=== PATIENT | female | born 1985 | race Caucasian/White ===

== ENCOUNTER 2023-09-10 09:53 | Inpatient (IN) | payer BC ==
[2023-09-10 11:20] VITALS: BMI 33.3
[2023-09-10] MEDS ORDERED: IBUPROFEN 400 MG TABLET (FP) PO PRN (12:10)
[2023-09-10] MEDS ORDERED: POLYETHYLENE GLYCOL (HEALTHYLAX) 3350 17 GM PACKET PO PRN (12:10)
[2023-09-10] MEDS ORDERED: guaiFENesin 600 MG TABLET.ER (FP) PO PRN (12:10)
[2023-09-10] MEDS ORDERED: NALOXONE HCL 0.4 MG/ML VIAL IM PRN (12:10)
[2023-09-10] MEDS ORDERED: IBUPROFEN 600 MG TABLET (FP) PO PRN (12:10)
[2023-09-10] MEDS ORDERED: BISMUTH SUBSALICYLATE 262 MG/15 ML BTL PO PRN (12:10)
[2023-09-10] MEDS ORDERED: hydrOXYzine PAMOATE 25 MG CAPSULE (FP) PO PRN (12:10)
[2023-09-10] MEDS ORDERED: BENZOCAINE/MENTHOL (CHLORASEPTIC ) LOZENGE MM PRN (12:10)
[2023-09-10] MEDS ORDERED: NALOXONE (NARCAN) HCL 4 MG/0.1 ML SPRAY NS PRN (12:10)
[2023-09-10] MEDS ORDERED: BENZONATATE 200 MG CAPSULE PO PRN (12:10)
[2023-09-10] MEDS ORDERED: ONDANSETRON *ODT* 4 MG TABLET SL PRN (12:10)
[2023-09-10] MEDS ORDERED: MAG HYDROX/AL HYDROX/SIMETH 30 ML UNIT-DOSE CUP PO PRN (12:10)
[2023-09-10] MEDS ORDERED: LOPERAMIDE HCL 2 MG CAPSULE PO PRN (12:10)
[2023-09-10] MEDS ORDERED: DICYCLOMINE HCL 10 MG CAPSULE PO PRN (12:10)
[2023-09-10] MEDS ORDERED: MAGNESIUM HYDROX 2400MG/30ML ORAL SUSPENSION 30 ML CUP PO PRN (12:10)
[2023-09-10] MEDS ORDERED: ACETAMINOPHEN 325 MG TABLET (FP) PO PRN (12:10)
[2023-09-10] MEDS ORDERED: HYDROCHLOROTHIAZIDE PO SCH (14:11)
[2023-09-10] MEDS ORDERED: VALSARTAN PO SCH (14:11)
[2023-09-10] MEDS: METOPROLOL TARTRATE 25 MG TABLET (FP) PO ONE (16:11)
[2023-09-10] MEDS: LORazepam 2 MG TABLET PO SCH (16:44)
[2023-09-10] MEDS: NICOTINE POLACRILEX 4 MG GUM BUC PRN (18:29)
[2023-09-10] MEDS: LORazepam 1 MG TABLET PO PRN (20:12)
[2023-09-10] MEDS: hydrOXYzine PAMOATE 50 MG CAPSULE (FP) PO PRN (20:12)
[2023-09-10] MEDS ORDERED: MELATONIN 5 MG TABLETS PO SCH (22:00)
[2023-09-10] MEDS: SUVOREXANT 10 MG TABLET PO PRN (22:16)
[2023-09-10] MEDS: GABAPENTIN 300 MG CAPSULE PO SCH (22:16)
[2023-09-10] MEDS: ATORVASTATIN CA 20 MG TABLET (FP) PO SCH (22:16)
[2023-09-10] MEDS: THIAMINE 100 MG TABLET PO SCH (22:16)
[2023-09-11] MEDS: metFORMIN HCL 500 MG TABLET (FP) PO SCH (06:02)
[2023-09-11] MEDS: PRENATAL VITAMINS W/ FOLIC ACID TABLET (FP) PO SCH (09:15)
[2023-09-11] MEDS: OXcarbazepine 300 MG TABLET (UD) PO SCH (09:15)
[2023-09-11] MEDS: DULoxetine HCL 30 MG CAPSULE.DR PO SCH (09:16)
[2023-09-11] MEDS: VALSARTAN 80 MG TABLET PO SCH (09:16)
[2023-09-11] MEDS ORDERED: HYDROCHLOROTHIAZIDE PO SCH (10:00)
[2023-09-11] MEDS ORDERED: VALSARTAN PO SCH (10:00)
[2023-09-11] MEDS: amLODIPine BESYLATE 10 MG TABLET (FP) PO ONE (14:52)
[2023-09-11 15:19] LABS: POTASSIUM 3.7 mmol/L (3.5-5.1)
[2023-09-11 15:22] LABS: HEMATOCRIT 41.2 % (32.4-45.2); HEMOGLOBIN 13.9 GM/dL (10.7-15.3); MCH 32.5 pg (25.7-33.7); MCHC 33.7 g/dl (32.0-36.0); MEAN CELL VOLUME 96.4 fl (80-96); MEAN PLT VOLUME 9.2 fl (7.5-11.1); PLATELET COUNT 194 10^3/uL (134-434); RBC 4.27 M/mm3 (3.60-5.2); RDW 15.4 % (11.6-15.6); WHITE BLOOD COUNT 10.5 K/mm3 (4.0-10.0)
[2023-09-11 15:23] LABS: ALBUMIN 3.2 g/dl (3.4-5.0); BLOOD UREA NITROGEN 5.6 mg/dL (7-18); CALCIUM 8.6 mg/dL (8.5-10.1)
[2023-09-11 15:26] LABS: CREATININE 0.7 mg/dL (0.55-1.3)
[2023-09-11 15:27] LABS: BILIRUBIN,TOTAL 0.7 mg/dL (0.2-1); TOT PROT 6.4 g/dl (6.4-8.2)
[2023-09-11] MEDS: METHOCARBAMOL 500 MG TABLET PO PRN (17:00)
[2023-09-11] MEDS: LISINOPRIL 10 MG TABLET PO ONE (17:38)
[2023-09-12] MEDS: LORazepam 1 MG TABLET PO SCH (05:49)
[2023-09-12] MEDS: amLODIPine BESYLATE 10 MG TABLET (FP) PO SCH (09:09)
[2023-09-12] MEDS: LACTULOSE 20 GM/30 ML UDC (FOR ORAL USE ONLY) PO SCH (13:20)
[2023-09-13] MEDS ORDERED: LORazepam 0.5 MG TABLET PO PRN
[2023-09-13] MEDS: LORazepam 0.5 MG TABLET PO SCH (05:31)
[2023-09-13 09:04] VITALS: BP 141/90; PULSE 102; RESP 16; TEMP 96.8
[2023-09-14] MEDS ORDERED: LORazepam 0.5 MG TABLET PO ONE (05:00)
== END 2023-09-13 09:24 | disposition home or self-care (01) | DRG 897 ==
LOC: YASAS 09:53 → Y3N 12:12
PROVIDERS: ADMIT Allergy & Immunology; ATTEND Surgery
PROC: HZ2ZZZZ Detoxification Services for Substance Abuse Treatment (ICD-10-PCS; principal; 2023-09-10)
DX: F10.230 Alcohol dependence with withdrawal, uncomplicated (principal); F31.81 Bipolar II disorder; F12.10 Cannabis abuse, uncomplicated; F17.210 Nicotine dependence, cigarettes, uncomplicated; F41.1 Generalized anxiety disorder; F60.3 Borderline personality disorder; I10 Essential (primary) hypertension; E78.5 Hyperlipidemia, unspecified; E11.9 Type 2 diabetes mellitus without complications; Z79.84 Long term (current) use of oral hypoglycemic drugs; M79.7 Fibromyalgia; R74.01 Elevation of levels of liver transaminase levels; R79.89 Other specified abnormal findings of blood chemistry
CPT/HCPCS: 36415; 80053; 80305; 80307; 81025; 82140; 82962; 83036; 85027; 86780